=== PATIENT | male | born 1945 | race Caucasian/White ===

== ENCOUNTER 2022-08-30 14:40 | Inpatient (IN) ==
[2022-08-30] MEDS ORDERED: cefTRIAXone 1 gm/50 mL D5W 1 GM/50 ML BAG IV ONE (14:47)
[2022-08-30] MEDS ORDERED: NS 0.9% 1000 ml BAG 1,000 ML IV ONE ×2 (14:47→17:34)
[2022-08-30 15:10] LABS: ABS Lymphocytes 0.2 10^3/ul (1.0-4.8); ABS Monocytes 0.6 10^3/ul (0-0.8); ABS Neutrophils 14.1 10^3/ul (1.5-7.7); Eosinophil % 0.1 %; Hematocrit 51 % (42-52); Hemoglobin 16.8 g/dL (14.0-18.0); Lymphocyte % 1.1 %; Mean Corpuscular HGB Conc 33 g/dL (31-36); Mean Corpuscular Hemoglobin 31 pg (27-31); Mean Corpuscular Volume 95 fL (80-94); Nucleated Red Blood Cells % 0.1; Platelet Count 216 10^3/uL (150-450); Red Blood Count 5.36 10^6 /uL (4.18-5.48); Red Cell Distribution Width 13 % (10-15); White Blood Count 14.9 10^3/uL (3.5-10.8)
[2022-08-30 15:23] LABS: INR 1.24 (0.89-1.11)
[2022-08-30 15:32] LABS: High Sens Troponin Baseline 17 pg/mL (<20)
[2022-08-30 15:53] LABS: ALT 17 U/L (7-52); AST 9 U/L (13-39); Albumin/Globulin Ratio 1.3 (1-3); Alcohol, S < 13 mg/dL (<13); Alkaline Phosphatase 72 U/L (35-149); CO2 Carbon Dioxide 16 mmol/L (22-32); Calcium 9.7 mg/dL (8.6-10.3); Chloride 100 mmol/L (101-111); Creatine Kinase 51 U/L (10-223); Glucose 113 mg/dL (70-100); Magnesium 2.8 mg/dL (1.9-2.7); Sodium 139 mmol/L (135-145)
[2022-08-30 16:03] LABS: Anion Gap 23 mmol/L (2-11); Potassium 6.5 mmol/L (3.5-5.0)
[2022-08-30 16:06] LABS: TSH Ultra Thyroid Stim Horm 1.07 mcIU/mL (0.34-5.60)
[2022-08-30 16:18] LABS: Blood Urea Nitrogen 209 mg/dL (6-24)
[2022-08-30 16:29] LABS: High Sensitivity Troponin 1 Hr 16 pg/mL (<20)
[2022-08-30 16:30] LABS: Urine Benzodiazepine Screen None Detected (None Detect); Urine Cannabinoids Screen None Detected (None Detect); Urine Opiates Screen None Detected (None Detect)
[2022-08-30 16:31] LABS: Urine Appearance Cloudy; Urine Bilirubin Negative (Negative); Urine Blood 3+ (Negative); Urine Color Yellow; Urine Glucose Negative (Negative); Urine Ketones Trace (Negative); Urine Nitrite Negative (Negative); Urine Protein Negative (Negative); Urine Specific Gravity 1.012 (1.002-1.030); Urine Urobilinogen Negative (Negative)
[2022-08-30 16:34] LABS: Urine Bacteria 1+ (Absent); Urine Red Blood Cell 3+(>10/hpf) (Absent); Urine Squamous Epithelial Cell Present (Absent); Urine White Blood Cell Trace(0-5/hpf) (Absent)
[2022-08-30 19:28] LABS: CO2 Carbon Dioxide 18 mmol/L (22-32); Calcium 8.8 mg/dL (8.6-10.3); Chloride 108 mmol/L (101-111); Glucose 119 mg/dL (70-100); Sodium 142 mmol/L (135-145); eGFR CKD-EPI 4.4 (>60)
[2022-08-30 19:55] LABS: Blood Urea Nitrogen 176 mg/dL (6-24)
[2022-08-30 19:58] LABS: Anion Gap 16 mmol/L (2-11)
[2022-08-30] MEDS ORDERED: NS 0.45% 1000 ml BAG 1,000 ML IV ONE ×2 (21:47→22:10)
[2022-08-30] MEDS: Heparin 5000 UNITS/ML 1 mL VIAL SUBCUT SCH (22:37)
[2022-08-31] MEDS ORDERED: NS 0.45% 1000 ml BAG 1,000 ML IV SCH ×2 (01:00→06:02)
[2022-08-31 04:02] LABS: Blood Urea Nitrogen 82 mg/dL (6-24); CO2 Carbon Dioxide 18 mmol/L (22-32); Calcium 8.9 mg/dL (8.6-10.3); Glucose 115 mg/dL (70-100); Potassium 3.7 mmol/L (3.5-5.0); eGFR CKD-EPI 19.5 (>60)
[2022-08-31 04:10] LABS: Sodium 146 mmol/L (135-145)
[2022-08-31 04:11] LABS: Anion Gap 13 mmol/L (2-11); Chloride 115 mmol/L (101-111)
[2022-08-31 04:30] LABS: Magnesium 2.1 mg/dL (1.9-2.7)
[2022-08-31] MEDS: Heparin 5000 UNITS/ML 1 mL VIAL SUBCUT SCH ×3 (05:09→21:04)
[2022-08-31 10:10] LABS: Folate > 20.00 ng/mL (5.90-24.80)
[2022-08-31 10:11] LABS: Vitamin B12 > 1450 pg/mL (180-914)
[2022-08-31 10:47] LABS: ABS Lymphocytes 0.2 10^3/ul (1.0-4.8); ABS Monocytes 0.7 10^3/ul (0-0.8); ABS Neutrophils 8.2 10^3/ul (1.5-7.7); Eosinophil % 0.4 %; Hematocrit 42 % (42-52); Hemoglobin 14.3 g/dL (14.0-18.0); Lymphocyte % 2.3 %; Mean Corpuscular HGB Conc 34 g/dL (31-36); Mean Corpuscular Hemoglobin 32 pg (27-31); Mean Corpuscular Volume 95 fL (80-94); Nucleated Red Blood Cells % 0.1; Platelet Count 163 10^3/uL (150-450); Red Blood Count 4.45 10^6 /uL (4.18-5.48); Red Cell Distribution Width 13 % (10-15); White Blood Count 9.2 10^3/uL (3.5-10.8)
[2022-08-31 11:11] LABS: Calcium 8.7 mg/dL (8.6-10.3); Potassium 4.2 mmol/L (3.5-5.0)
[2022-08-31 11:22] LABS: PSA Screening Total 11.987 ng/mL (0-4.000)
[2022-08-31] MEDS ORDERED: D5W 1000 ml BAG 1,000 ML IV SCH (13:00)
[2022-08-31] MEDS ORDERED: cefTRIAXone 1 gm/50 mL D5W 1 GM/50 ML BAG IV SCH (15:00)
[2022-08-31 19:36] LABS: Calcium 8.5 mg/dL (8.6-10.3); Potassium 3.4 mmol/L (3.5-5.0)
[2022-09-01] MEDS: Heparin 5000 UNITS/ML 1 mL VIAL SUBCUT SCH ×3 (05:37→21:01)
[2022-09-01 06:30] LABS: ABS Eosinophils 0.3 10^3/ul (0-0.6); ABS Lymphocytes 0.4 10^3/ul (1.0-4.8); ABS Monocytes 0.8 10^3/ul (0-0.8); ABS Neutrophils 7.8 10^3/ul (1.5-7.7); Eosinophil % 3.1 %; Hematocrit 44 % (42-52); Hemoglobin 15.2 g/dL (14.0-18.0); Lymphocyte % 4.1 %; Mean Corpuscular HGB Conc 34 g/dL (31-36); Mean Corpuscular Hemoglobin 33 pg (27-31); Mean Corpuscular Volume 94 fL (80-94); Nucleated Red Blood Cells % 0.1; Platelet Count 186 10^3/uL (150-450); Red Blood Count 4.69 10^6 /uL (4.18-5.48); Red Cell Distribution Width 13 % (10-15); White Blood Count 9.3 10^3/uL (3.5-10.8)
[2022-09-01 07:05] LABS: Calcium 8.6 mg/dL (8.6-10.3); Magnesium 1.8 mg/dL (1.9-2.7); Potassium 3.6 mmol/L (3.5-5.0); eGFR CKD-EPI 91.6 (>60)
[2022-09-01] MEDS ORDERED: Magnesium Sulfate IV 3 GM in NS 0.9% 100 ml BAG 100 ML IVPB ONE (08:30)
[2022-09-01] MEDS ORDERED: KCL 20 MEQ/100 ML IVPREMIX 20 MEQ/100 ML BAG IV ONE (15:34)
[2022-09-01] MEDS ORDERED: Potassium Chloride LIQUID 20 MEQ/15 ML LIQUID PO ONE (15:38)
[2022-09-02] MEDS: Heparin 5000 UNITS/ML 1 mL VIAL SUBCUT SCH ×3 (05:32→21:16)
[2022-09-02 06:13] LABS: Calcium 8.2 mg/dL (8.6-10.3); Magnesium 2.1 mg/dL (1.9-2.7); Potassium 3.7 mmol/L (3.5-5.0); eGFR CKD-EPI 93.5 (>60)
[2022-09-02] MEDS ORDERED: Potassium Chlor 20 meq TAB.ER PO ONE (07:44)
[2022-09-03] MEDS: Heparin 5000 UNITS/ML 1 mL VIAL SUBCUT SCH (06:18)
[2022-09-03 07:09] LABS: Calcium 8.1 mg/dL (8.6-10.3); Potassium 3.8 mmol/L (3.5-5.0); eGFR CKD-EPI 95.1 (>60)
[2022-09-03] MEDS ORDERED: Magnesium Hydroxide LIQ 30 ML UDC PO PRN (07:17)
[2022-09-03] MEDS: Enoxaparin 40 MG/0.4 ML SYR SUBCUT SCH (12:26)
[2022-09-04 11:30] VITALS: BP 138/83
[2022-09-04] MEDS: Enoxaparin 40 MG/0.4 ML SYR SUBCUT SCH (11:44)
== END 2022-09-04 16:45 | disposition home health service (06) | DRG 70 ==
LOC: ED 14:40 → EDHOLD 14:40 → SUATTDRO 08-31 01:16 → EDHOLD 08-31 12:01 → MED 08-31 13:03
PROVIDERS: ADMIT Student in an Organized Health Care Education/Training Program; ATTEND Family Medicine

== ENCOUNTER 2023-04-16 07:21 | Observation (INO) ==
[~2023-04-16 07:21] MED LIST: Buffered Lidocaine 1% SYRIN 1 ml INTRADERM ONE; Lactated Ringers 1000 ml BAG 1,000 ML IV SCH
[2023-04-16] MEDS ORDERED: cefTRIAXone 2 gm/50 mL D5W 2 GM/50 ML BAG IV ONE (07:50)
[2023-04-16 08:12] LABS: Rapid COVID-19 Molecular Undetected (Undetected)
[2023-04-16] MEDS ORDERED: fentaNYL 100 mcg/2 ml 50 MCG/ML VIAL ONE (08:23)
[2023-04-16] MEDS ORDERED: Bupivacaine 0.5% PF 10 ML SDV VIAL INJ ONE (08:25)
[2023-04-16] MEDS ORDERED: Bupivacaine 0.5% SDV PF 30ML VIAL ONE (08:25)
[2023-04-16] MEDS ORDERED: Propofol 10 MG/ML 20 ML BTL ONE (09:01)
[2023-04-16] MEDS ORDERED: Midazolam 2 mg/2 ml VIAL 1 mg/ml 2 ml VIAL (2 mg) ONE (09:03)
[2023-04-16] MEDS ORDERED: Lidocaine 2% PF 5 ML VIAL ONE (09:03)
[2023-04-16] MEDS ORDERED: Phenylephrine IV 10 MG/ML 1 ml VIAL ONE (10:19)
[2023-04-16] MEDS ORDERED: Dexamethasone IV 4 MG/ML VIAL 1 ml VIAL ONE (10:19)
[2023-04-16] MEDS ORDERED: Ondansetron 4 mg VIAL 2 MG/ML 2 ml VIAL ONE (10:19)
[2023-04-16] MEDS ORDERED: Ondansetron 4 mg VIAL 2 MG/ML 2 ml VIAL IV PRN (10:33)
[2023-04-16] MEDS ORDERED: HYDROmorphone 1 MG/1 ML SYRINGE IV PRN (10:33)
[2023-04-16] MEDS ORDERED: fentaNYL 100 mcg/2 ml 50 MCG/ML VIAL IV PRN (10:33)
[2023-04-16] MEDS ORDERED: Naloxone 0.4 mg VIAL 0.4 mg/ml 1 ml VIAL IV PRN (10:33)
[2023-04-16] MEDS ORDERED: oxyCODONE/Acetamin 5/325 mg TAB PO PRN (14:00)
[2023-04-16] MEDS ORDERED: Lidocaine 2% JELLY 6 ML Topical TOPICAL PRN (14:05)
[2023-04-16] MEDS: NS 0.9% 1000 ml BAG 1,000 ML IV SCH (20:21)
[2023-04-17] MEDS: NS 0.9% 1000 ml BAG 1,000 ML IV SCH (03:16)
[2023-04-17] MEDS ORDERED: cefTRIAXone 1 GM Q24H (ADVAN) IVPB ONE (07:00)
[2023-04-17] MEDS ORDERED: Vitamin THERAPEUTIC TAB PO SCH (09:00)
[2023-04-17 10:06] VITALS: BP 137/70
== END 2023-04-17 10:30 | disposition home or self-care (01) ==
LOC: OR 07:21 → SSU 07:21
PROVIDERS: ADMIT Urology; ATTEND Urology